=== PATIENT | female | born 1980 | race Two or more races ===

== ENCOUNTER 2019-10-15 18:34 | Emergency (ER) | payer MEDICAID, SELFPAY ==
[~2019-10-15] VITALS: Ht 157.5 cm; Wt 68.0 kg
[2019-10-15 18:55] VITALS: Ht 157.5 cm; Wt 68.0 kg
[2019-10-15 19:30] VITALS: BP 119/78
== END 2019-10-15 19:30 | disposition home or self-care (01) ==
LOC: ED 18:34
DX: R51 Headache (principal); M79.10 Myalgia, unspecified site; R05 Cough; Z20.828 Contact with and (suspected) exposure to other viral communicable diseases
CPT/HCPCS: U0003-CS